=== PATIENT | male | born 1980 | race African-American/Black ===

== ENCOUNTER → 2016-11-04 | Outpatient (CLI) | payer MEDICAID ==
--- NOTE | 2016-11-04 15:25 | REP ---
LEFT WRIST SERIES: Four views. HISTORY: Injury and a fall. FINDINGS: Four views of the left wrist demonstrate normal bones, joints, and soft tissues. No fracture or subluxation is seen. IMPRESSION: Negative left wrist series. Signed by Octavio Gaytan MD 11/04/2016 03:51 P
--- NOTE | 2016-11-04 15:35 | REP ---
Left elbow series: Four views. History: Injury in a fall. Findings: Four views of the left elbow demonstrate normal bones, joints, and soft tissues. No evidence of fracture, subluxation or joint effusion seen. Impression: Negative left elbow views. Signed by Octavio Gaytan MD 11/04/2016 03:51 P
--- NOTE | 2016-11-04 15:35 | REP ---
Left forearm series: Two views. History: Injury in a fall. Findings: AP and lateral views of the forearm show normal bones and joints. There is some soft tissue swelling over the dorsal aspect of the forearm. Impression: Dorsal soft tissue swelling. No fracture seen. Signed by Octavio Gaytan MD 11/04/2016 03:51 P
== END ==
LOC: M LRY 14:49
PROVIDERS: ATTEND Nurse Practitioner Family
DX: S59.912A Unspecified injury of left forearm, initial encounter (principal); X58.XXXA Exposure to other specified factors, initial encounter; Y92.89 Other specified places as the place of occurrence of the external cause; Y93.89 Activity, other specified; Y99.8 Other external cause status

== ENCOUNTER 2017-01-13 13:51 | Emergency (ER) | payer MEDICAID, OTHER ==
[~2017-01-13] VITALS: Ht 180.3 cm; Wt 120.2 kg
[2017-01-13] MEDS ORDERED: METHOCARBAMOL 500 MG TAB PO ONE (14:45)
[2017-01-13] MEDS ORDERED: IBUPROFEN 800 MG TAB PO ONE (14:45)
--- NOTE | 2017-01-13 15:44 | REP ---
LUMBAR SPINE, FIVE VIEWS: HISTORY: Trauma. There is no acute fracture or subluxation. The L4-5 intervertebral disc is decreased in height consistent with disc degeneration. The facet joints are normal in appearance. There is partial sacralization of the L5 vertebral body. IMPRESSION: Degenerative change as described above. Signed by Chaim Youssef MD 01/13/2017 03:49 P
[2017-01-13] MEDS ORDERED: ROBA500T PO (15:59)
[2017-01-13] MEDS ORDERED: IBUP600T26 PO (15:59)
[2017-01-13 16:07] VITALS: BP 159/77
== END 2017-01-13 16:15 | disposition home or self-care (01) ==
LOC: M ED 14:58
DX: S40.012A Contusion of left shoulder, initial encounter (principal); S39.012A Strain of muscle, fascia and tendon of lower back, initial encounter; V74.6XXA Passenger on bus injured in collision with heavy transport vehicle or bus in traffic accident, initial encounter; Y92.410 Unspecified street and highway as the place of occurrence of the external cause; Y93.89 Activity, other specified; Y99.8 Other external cause status

== ENCOUNTER 2019-06-15 11:33 | Emergency (ER) | payer MEDICAID, OTHER, SELFPAY ==
[~2019-06-15] VITALS: Ht 180.3 cm; Wt 111.3 kg
[2019-06-15 11:33] VITALS: BP 123/76
[~2019-06-15 11:33] MED LIST: IBUP-1022 PO; ROBA500T PO
[2019-06-15] MEDS ORDERED: KEFL500C17 PO (12:13)
[2019-06-15] MEDS ORDERED: CEPHALEXIN 500 MG CAP PO ONE (12:15)
== END 2019-06-15 12:19 | disposition home or self-care (01) ==
LOC: M ED 11:33
DX: L03.012 Cellulitis of left finger (principal)

== ENCOUNTER 2019-09-06 11:47 | Emergency (ER) | payer OTHER, SELFPAY ==
[~2019-09-06] VITALS: Ht 180.3 cm; Wt 116.6 kg
[~2019-09-06 11:47] MED LIST changes: +KEFL500C17 PO
[2019-09-06 11:48] VITALS: BP 133/80
[2019-09-06] MEDS ORDERED: ACETAMINOPHEN TAB 650MG DOSE (2X325MG) PO ONE (12:15)
--- NOTE | 2019-09-06 12:29 | REP ---
Clinical: Trauma. Technique: AP, lateral, bilateral oblique views of the right hand. Findings: There is an oblique nondisplaced fracture involving the fourth digit middle phalanx with overlying soft tissue injury. Old healed boxers fracture noted. Impression: Oblique nondisplaced fracture of the fourth digit middle phalanx with overlying soft tissue injury. Electronically Signed by Kevin Cross MD 09/06/2019 12:20 P
== END 2019-09-06 13:14 | disposition home or self-care (01) ==
LOC: M ED 11:47
DX: S62.654A Nondisplaced fracture of middle phalanx of right ring finger, initial encounter for closed fracture (principal); S60.414A Abrasion of right ring finger, initial encounter; W10.9XXA Fall (on) (from) unspecified stairs and steps, initial encounter; Y92.009 Unspecified place in unspecified non-institutional (private) residence as the place of occurrence of the external cause; Y93.89 Activity, other specified; Y99.8 Other external cause status; F17.200 Nicotine dependence, unspecified, uncomplicated

== ENCOUNTER 2022-04-20 09:07 | Emergency (ER) | payer OTHER ==
[~2022-04-20] VITALS: Ht 180.3 cm; Wt 114.7 kg
[2022-04-20] MEDS ORDERED: IBUP-1022 PO (10:26)
[2022-04-20 10:36] VITALS: BP 134/70
== END 2022-04-20 10:40 | disposition home or self-care (01) ==
LOC: M ED 09:07
DX: S46.911A Strain of unspecified muscle, fascia and tendon at shoulder and upper arm level, right arm, initial encounter (principal); X50.9XXA Other and unspecified overexertion or strenuous movements or postures, initial encounter; Y99.0 Civilian activity done for income or pay

== ENCOUNTER 2024-04-13 16:22 | Emergency (ER) | payer OTHER ==
[~2024-04-13] VITALS: Ht 180.3 cm; Wt 118.2 kg
[2024-04-13 16:34] VITALS: BP 142/86; TEMP 98.6; O2SAT 98
[2024-04-13 17:34] LABS: HEMATOCRIT 44.8 % (42.0-52.0); HEMOGLOBIN 14.7 g/dl (13.5-17.5); MEAN CORPUSCULAR HEMOGLOBIN 29.9 pg (27.0-33.0); MEAN CORPUSCULAR HGB CONC 32.8 g/dl (32.0-36.5); MEAN CORPUSCULAR VOLUME 91.1 fl (80.0-96.0); PLATELET COUNT, AUTOMATED 283 10^3/uL (150-450); RED BLOOD COUNT 4.92 10^6/uL (4.30-6.10); WHITE BLOOD COUNT 10.8 10^3/uL (4.0-10.0)
[2024-04-13 17:56] LABS: BARBITURATES URINE NEGATIVE (NEGATIVE); BENZODIAZEPINES URINE NEGATIVE (NEGATIVE); CANNABINOIDS URINE NEGATIVE (NEGATIVE); COCAINE METABOLITE URINE NEGATIVE (NEGATIVE); METHADONE URINE NEGATIVE (NEGATIVE); OPIATES URINE NEGATIVE (NEGATIVE); PHENCYCLIDINE URINE NEGATIVE (NEGATIVE)
[2024-04-13 18:00] LABS: SALICYLATE LEVEL < 3.0 MG/DL (<30)
[2024-04-13 18:06] LABS: AMPHETAMINES LEVEL URINE POSITIVE (NEGATIVE)
[2024-04-13 18:24] LABS: ALBUMIN 4.2 G/DL (3.2-5.2); ALT/SGPT 36 U/L (7.0-40); AST/SGOT 26 U/L (<34); BILIRUBIN,DIRECT 0.5 MG/DL (<0.4); BLOOD UREA NITROGEN 11 MG/DL (9-23); CALCIUM LEVEL 9.5 MG/DL (8.5-10.1); CARBON DIOXIDE LEVEL 25 MMOL/L (20-31); CHLORIDE LEVEL 104 MMOL/L (98-107); CREATININE FOR GFR 1.11 MG/DL (0.70-1.30); GLOMERULAR FILTRATION RATE > 60.0 (>60); GLUCOSE, FASTING 111 MG/DL (60-100); POTASSIUM SERUM 3.8 MMOL/L (3.5-5.1); SODIUM LEVEL 136 MMOL/L (136-145); THYROID STIMULATING HORMONE 2.146 uIU/ML (0.55-4.78); TOTAL PROTEIN 7.4 G/DL (5.7-8.2)
[2024-04-13 18:25] LABS: ALKALINE PHOSPHATASE 62 U/L (46-116)
[2024-04-13 18:26] LABS: ETHYL ALCOHOL (ETHANOL) < 0.003 % (0.000-0.010)
== END 2024-04-13 22:00 | disposition home or self-care (01) ==
LOC: M ED 16:22
DX: F43.0 Acute stress reaction (principal); F17.200 Nicotine dependence, unspecified, uncomplicated

== ENCOUNTER 2024-12-12 08:26 | Emergency (ER) | payer OTHER, SELFPAY ==
[~2024-12-12] VITALS: Ht 180.3 cm; Wt 105.5 kg
[2024-12-12] MEDS: ACETAMINOPHEN 500 MG TAB PO ONE (09:56)
[2024-12-12] MEDS: diazePAM 5MG TABLET PO ONE (09:56)
[2024-12-12] MEDS: KETOROLAC 30 MG/ML 1ML VIAL IM ONE (09:57)
[2024-12-12] MEDS ORDERED: MEDR4PAK PO (13:32)
[2024-12-12 13:45] VITALS: BP 124/79; TEMP 97.4; O2SAT 98
== END 2024-12-12 13:47 | disposition home or self-care (01) ==
LOC: M ED 08:26
DX: M51.16 Intervertebral disc disorders with radiculopathy, lumbar region (principal); F17.200 Nicotine dependence, unspecified, uncomplicated
CPT/HCPCS: 72148; 96372; 99284; J1885